=== PATIENT | male | born 2000 | race Two or more races ===

== ENCOUNTER 2024-08-16 10:54 | Outpatient (REF) | payer MEDICAID, SELFPAY ==
[2024-08-16 13:30] LABS: Estimated Average Glucose 88 mg/dL; Hemoglobin A1C 126.2911 umol/L; Hemoglobin A1c % 4.7 % (<6.0); Total Hemoglobin (HGBA1C) 4499.5844 umol/L
[2024-08-16 13:51] LABS: Alanine Aminotransferase 54 U/L (0-40); Albumin Level 4.8 g/dL (3.5-5.0); Alkaline Phosphatase 68 U/L (39-117); Anion Gap 12 (12-20); Aspartate Amino Transferase 33 U/L (5-37); Bilirubin Direct 0.3 mg/dL (0.0-0.5); Blood Urea Nitrogen 15 mg/dL (9-16); Calcium 10.3 mg/dL (8.4-10.2); Carbon Dioxide 28 mmol/L (22-29); Chloride 103 mmol/L (96-108); Cholesterol 158 mg/dL (<200); Estimated Glomerular Filt Rate > 60; Glucose Random 85 mg/dL (60-115); HDL Cholesterol 60 mg/dL (>40); Iron 267 mcg/dL (45-160); LDL Cholesterol Calculated 86 mg/dL (<100); Percent Iron Saturation 73 % (15-50); Potassium 3.8 mmol/L (3.3-5.1); Sodium 139 mmol/L (135-145); Total Iron Binding Capacity 365 mcg/dL (228-428); Total Protein 7.8 g/dL (6.5-8.0); Triglycerides 62 mg/dL (<150); Unsaturated Iron Binding 98 ug/dL
[2024-08-16 14:10] LABS: Creatinine Urine 133.91 mg/dL; Microalbumin Urine < 5.0 mg/L
[2024-08-16 14:24] LABS: Ferritin 197 ng/mL (20-250)
[2024-08-16 18:13] LABS: CT PCR NOT DETECTED (Not Detect.); NG PCR NOT DETECTED (Not Detect.)
[2024-08-17 07:49] LABS: Syphilis Screen Nonreactive (Nonreactive)
[2024-08-17 08:21] LABS: HBS Num1 > 1000.00 mIU/mL (0-7.99); HBc Num1 0.14 S/CO (0.00-0.79); HBsAGNum1 0.41 S/CO (0.00-0.99); HIV AB/AG Nonreactive (Nonreactive); HIV Num 1 0.06 S/CO (0.00-0.99); Hepatitis A Antibody IgM 0.12 Index (0-0.79); Hepatitis B Core Antibody Nonreactive (Nonreactive); Hepatitis B Surface Antigen Negative (Negative); ~HepC Num1 0.13 S/CO (0.00-0.79); ~Hepatitis A Antibody IgM Nonreactive (Nonreactive); ~Hepatitis B Surface Antibody REACTIVE (Nonreactive); ~Hepatitis C Antibody Nonreactive (Nonreactive)
[2024-08-20 06:38] LABS: Ceruloplasmin 21 mg/dL (14-30)
[2024-08-20 17:38] LABS: RPR Rapid Plasma Reagin NON-REACTIVE (NON-REACTIVE)
[2024-08-21 08:44] LABS: Anti Nuclear Antibody Screen NEGATIVE (NEGATIVE)
[2024-08-21 12:44] LABS: Alpha Fetoprotein 1.3 ng/mL (<6.1)
[2024-08-21 13:09] LABS: Mitochondrial Antibodies NEGATIVE (NEGATIVE)
[2024-08-22 23:29] LABS: Smooth Muscle Antibody <20 U (<20)
== END 2024-08-16 10:55 | disposition home or self-care (01) ==
LOC: HO.HHCL 10:54
PROVIDERS: Visit Provider Family Medicine
DX: Z11.3 Encounter for screening for infections with a predominantly sexual mode of transmission (principal); R74.01 Elevation of levels of liver transaminase levels; E66.09 Other obesity due to excess calories; Z68.33 Body mass index [BMI] 33.0-33.9, adult
CPT/HCPCS: 80048; 80061; 80076; 82043; 82105; 82390; 82570; 82728; 83036; 83540; 86015; 86038; 86381; 86592; 86704; 86706; 86709; 86780; 86803; 87340; 87389; 87491; 87591